=== PATIENT | female | born 1945 | race Caucasian/White ===

== ENCOUNTER 2022-06-16 09:05 | Observation (INO) | payer MEDICARE ==
[~2022-06-16] VITALS: Ht 167.6 cm; Wt 69.1 kg
[2022-06-16] VITALS (8 sets, daily range): BP systolic 149–177; BP diastolic 65–92
[2022-06-16] MEDS ORDERED: normal saline 1000ML IV soln IVB ONE (09:15)
[2022-06-16] MEDS ORDERED: aspirin 81mg tab.chew PO ONE (09:15)
[2022-06-16 10:43] LABS: BASOPHILS # (AUTO) 0.1 X10'3 (0-0.2); BASOPHILS % (AUTO) 1.1 % (0-1); EOSINOPHILS # (AUTO) 0.3 X10'3 (0-0.9); EOSINOPHILS % (AUTO) 3.6 % (0-6); HEMATOCRIT 44.2 % (35.0-45.0); LYMPHOCYTES # (AUTO) 1.6 X10'3 (1.1-4.8); LYMPHOCYTES % (AUTO) 23.5 % (21-51); MEAN CORPUSCULAR HEMOGLOBIN 31.2 PG (27.0-31.0); MEAN CORPUSCULAR HGB CONC 33.9 g/dL (33.0-36.5); MEAN PLATELET VOLUME 7.2 FL (7.4-10.4); MONOCYTES # (AUTO) 0.7 X10'3 (0-0.9); MONOCYTES % (AUTO) 10.3 % (2-12); NEUTROPHILS # (AUTO) 4.3 X10'3 (1.8-7.7); NEUTROPHILS % (AUTO) 61.5 % (42-75); PLATELET COUNT 298 X10'3 (140-440); RED CELL DISTRIBUTION WIDTH 14.1 % (11.5-14.5); WHITE BLOOD COUNT 6.9 X10'3 (4.5-11.0)
[2022-06-16 10:58] LABS: ALANINE AMINOTRANSFERASE 28 U/L (12-78); ALBUMIN 3.7 G/DL (3.4-5.0); ALKALINE PHOSPHATASE 99 IU/L (46-116); ANION GAP 5 (8-16); ASPARTATE AMINO TRANSFERASE 25 U/L (10-37); BILIRUBIN,TOTAL 0.6 MG/DL (0.1-1.0); BLOOD UREA NITROGEN 16 MG/DL (7-18); BUN/CREATININE RATIO 14.2 (6.6-38.0); CALCIUM 9.2 MG/DL (8.5-10.1); CHLORIDE 104 MMOL/L (99-107); CREATININE 1.13 MG/DL (0.40-0.90); GLUCOSE 87 MG/DL (70-104); POTASSIUM 4.6 MMOL/L (3.5-5.1); SODIUM 140 MMOL/L (135-145); TOTAL CARBON DIOXIDE 30.7 MMOL/L (24-32); TOTAL PROTEIN 7.4 G/DL (6.4-8.2); eGFR 47 ML/MIN
[2022-06-16] MEDS ORDERED: ondansetron/PF 4mg/2ml inj IV PRN (12:45)
[2022-06-16] MEDS ORDERED: mag hydrox/Alum hydrox/simeth 30ml oral suspension PO PRN (12:45)
[2022-06-16] MEDS ORDERED: regadenoson 0.4mg/5ml syringe IV PRN (12:45)
[2022-06-16] MEDS ORDERED: metoprolol tartrate 1mg/ml inj IV PRN (12:45)
[2022-06-16] MEDS ORDERED: magnesium hydroxide 30ml (MOM) UD suspension PO PRN (12:45)
[2022-06-16] MEDS ORDERED: PERFLUTREN PROTEIN-A MICROSPHR (Optison) 0.22 MG/ML 3ML VIAL IV ONE (12:45)
[2022-06-16] MEDS ORDERED: acetaminophen 325mg tablet PO PRN (12:45)
[2022-06-16] MEDS ORDERED: morphine 2 MG/ML inj. syringe IV PRN ×2 (12:45)
[2022-06-16] MEDS ORDERED: nitroGLYCERIN 0.4mg SUBLingual tab SL PRN (12:45)
[2022-06-16] MEDS ORDERED: normal saline 1000ml 1,000 ML IV SCH (12:45)
[2022-06-16] MEDS ORDERED: aminophylline 500mg/20ml vial IV PRN (12:45)
--- NOTE | 2022-06-16 14:42 | NUR ---
Pt going to have stress test.
--- NOTE | 2022-06-16 14:50 | NUR ---
pt to nuc med on monitor with RN, pt able to transfer self without assist from gurney to wheelchair, no chest pain/dizziness, pt is alert, oriented x3, skin p/w/d, SR on monitor, no ectopy
[2022-06-16 15:00] LABS: COLOR,URINE YELLOW (Yellow); GLUCOSE, URINE NEGATIVE (Neg); KETONES,URINE NEGATIVE (Neg); LEUKOCYTE ESTERASE ,URINE SMALL (Neg); NITRITES, URINE NEGATIVE (Neg); OCCULT BLOOD,URINE NEGATIVE (Neg); PROTEIN,URINE NEGATIVE (Neg); UROBILINOGEN,URINE 0.2 E.U/dL (0.2-1.0)
[2022-06-16 15:01] LABS: UA COLLECTION TYPE CLN CATCH MIDSTREAM
[2022-06-16 15:02] LABS: CLARITY,URINE SLIGHTLY CLOUDY (Clear)
[2022-06-16] MEDS ORDERED: aminophylline inj. 0 ML IV ONE (15:13)
[2022-06-16 15:15] LABS: SQUAMOUS EPITHELIAL CELL,UR MANY /LPF (FEW)
[2022-06-16 15:17] LABS: MUCUS STRANDS FEW /LPF (Neg)
[2022-06-16 15:18] LABS: TRANSITIONAL EPI CELLS,URINE FEW /HPF
[2022-06-16 15:24] LABS: YEAST FEW /HPF (NEGATIVE)
[2022-06-16 15:28] LABS: WAXY CASTS,URINE 0-3 /LPF (NEGATIVE)
[2022-06-16 15:29] LABS: RBC,URINE 0-2 /HPF (0-2)
[2022-06-16 15:30] LABS: BACTERIA,URINE 2+ /HPF (Neg)
[2022-06-16] MEDS ORDERED: CETI-90 PO (15:58)
[2022-06-16] MEDS ORDERED: MULT-1074 PO (15:58)
[2022-06-16] MEDS ORDERED: ATOR10TA87 PO (15:58)
[2022-06-16] MEDS ORDERED: LEVO88TA2 PO (15:58)
--- NOTE | 2022-06-16 16:20 | NUR ---
pt is finishing up nuc med stress test, tolerated well, SR on monitor, no ectopy, HR 61, RR 18
--- NOTE | 2022-06-16 16:37 | NUR ---
PT IS BACK TO ROOM 12, FAMILY AT BEDSIDE
[2022-06-16] MEDS ORDERED: CYCL1DRO EACHEYE (17:39)
[2022-06-16] MEDS ORDERED: FLUT16SP26 BOTHNARES (17:39)
[2022-06-16 19:24] LABS: CLARITY,URINE CLEAR (Clear); COLOR,URINE YELLOW (Yellow); GLUCOSE, URINE NEGATIVE (Neg); KETONES,URINE 15 mg/dl (Neg); LEUKOCYTE ESTERASE ,URINE NEGATIVE (Neg); NITRITES, URINE NEGATIVE (Neg); OCCULT BLOOD,URINE NEGATIVE (Neg); PROTEIN,URINE NEGATIVE (Neg); UROBILINOGEN,URINE 0.2 E.U/dL (0.2-1.0)
[2022-06-16 19:28] LABS: UA COLLECTION TYPE CLN CATCH MIDSTREAM
[2022-06-16] MEDS ORDERED: cycloSPORINE 0.05% ophthalmic emulsion EACHEYE SCH (20:00)
[2022-06-16] MEDS ORDERED: docusate sod 100mg capsule PO SCH (20:00)
--- NOTE | 2022-06-17 01:00 | NUR ---
Patient in room PCU 3016. I have received report from brian from ER and had the opportunity to ask questions and assume patient care.
[2022-06-17 06:22] LABS: BASOPHILS # (AUTO) 0.1 X10'3 (0-0.2); EOSINOPHILS # (AUTO) 0.3 X10'3 (0-0.9); EOSINOPHILS % (AUTO) 4.8 % (0-6); HEMATOCRIT 37.4 % (35.0-45.0); HEMOGLOBIN 12.5 g/dl (12.0-16.0); LYMPHOCYTES # (AUTO) 1.9 X10'3 (1.1-4.8); MEAN CORPUSCULAR HGB CONC 33.3 g/dL (33.0-36.5); MEAN CORPUSCULAR VOLUME 93.2 FL (78-98); MEAN PLATELET VOLUME 7.2 FL (7.4-10.4); MONOCYTES # (AUTO) 0.7 X10'3 (0-0.9); MONOCYTES % (AUTO) 12.9 % (2-12); NEUTROPHILS # (AUTO) 2.7 X10'3 (1.8-7.7); NEUTROPHILS % (AUTO) 48.3 % (42-75); PLATELET COUNT 249 X10'3 (140-440); RED BLOOD COUNT 4.01 X10'6 (4.20-5.60); RED CELL DISTRIBUTION WIDTH 13.9 % (11.5-14.5); WHITE BLOOD COUNT 5.6 X10'3 (4.5-11.0)
--- NOTE | 2022-06-17 06:24 | NUR ---
Problems reprioritized. Patient report given, questions answered & plan of care reviewed with Katie.
[2022-06-17 06:31] LABS: ALBUMIN 2.9 G/DL (3.4-5.0); ANION GAP 7 (8-16); BLOOD UREA NITROGEN 19 MG/DL (7-18); BUN/CREATININE RATIO 18.8 (6.6-38.0); CALCIUM 8.2 MG/DL (8.5-10.1); CHLORIDE 107 MMOL/L (99-107); CREATININE 1.01 MG/DL (0.40-0.90); GLUCOSE 86 MG/DL (70-104); SODIUM 140 MMOL/L (135-145); TOTAL CARBON DIOXIDE 26.3 MMOL/L (24-32); eGFR 54 ML/MIN
[2022-06-17] MEDS ORDERED: multivitamins, therapeutics tablet PO SCH (08:00)
[2022-06-17] MEDS ORDERED: enoxaparin 40mg/0.4ml syringe SUBCUT SCH (08:00)
[2022-06-17] MEDS ORDERED: cetirizine 10mg tablet PO SCH (08:00)
[2022-06-17] MEDS ORDERED: levoTHYROXINE 88mcg tablet PO SCH (08:00)
[2022-06-17] MEDS ORDERED: atorvastatin 10mg tablet PO SCH (08:00)
--- NOTE | 2022-06-17 11:04 | NUR ---
Reviewed discharge information with patient on medication, discharge instructions, follow up appointment, and when when to return to the ER. Pt stated she did not have any additional question or concerns at this time. Pt IV removed, tele box returned to [facility]. Pt left the facility via wheelchair to private vehicle.
== END 2022-06-17 11:02 | disposition home or self-care (01) ==
LOC: ER 09:05 → ED HOLD 12:47 → PCU 3S 22:25
PROVIDERS: ADMIT Family Medicine; ATTEND Family Medicine
DX: R07.89 Other chest pain (principal); R00.2 Palpitations; E78.5 Hyperlipidemia, unspecified; E03.9 Hypothyroidism, unspecified; E78.00 Pure hypercholesterolemia, unspecified; I11.0 Hypertensive heart disease with heart failure; I50.9 Heart failure, unspecified; I48.0 Paroxysmal atrial fibrillation; F41.9 Anxiety disorder, unspecified; Z79.899 Other long term (current) drug therapy
CPT/HCPCS: 36415; 71045; 78452; 80048; 80053; 81001; 81003; 83880; 84443; 84484; 85025; 93005; 93017; 93306; 96360; 96361; 96372; 99285; A9500; G0378; J1650; J7030; A6402; J0280

== ENCOUNTER 2025-01-09 14:23 | Outpatient (CLI) | payer MEDICARE ==
[~2025-01-09 14:23] MED LIST: ATOR10TA87 PO; CETI-90 PO; CYCL1DRO EACHEYE; FLUT16SP26 BOTHNARES; LEVO88TA2 PO; MULT-1074 PO
== END 2025-01-09 23:59 | disposition home or self-care (01) ==
LOC: MRI02 14:23
PROVIDERS: ATTEND Orthopaedic Surgery
DX: M19.012 Primary osteoarthritis, left shoulder (principal); M25.512 Pain in left shoulder; M89.312 Hypertrophy of bone, left shoulder; M77.8 Other enthesopathies, not elsewhere classified; M75.112 Incomplete rotator cuff tear or rupture of left shoulder, not specified as traumatic; M75.42 Impingement syndrome of left shoulder; M75.52 Bursitis of left shoulder
CPT/HCPCS: 73221